=== PATIENT | female | born 1945 | race Caucasian/White ===

== ENCOUNTER 2021-03-30 12:02 | Emergency (ER) | payer MEDICARE ==
[2021-03-30 13:20] LABS: #Basophils 0.1 10x3/uL (0.0-0.2); #Monocytes 0.7 10x3/uL (0.0-1.1); #Neutrophils 9.4 10x3/uL (1.5-8.4); %Basophils 0.5 % (0.0-2.0); %Lymphocytes 5.1 % (18.0-47.0); %Monocytes 6.3 % (0.0-10.0); %Neutrophils 87.5 % (40.0-75.0); Hemoglobin 11.3 g/dL (12.0-15.5); Mean Corpuscular HGB CONC 31.7 g/dL (32.0-36.0); Mean Corpuscular Hemoglobin 29.7 pg (27.0-33.0); Mean Corpuscular Volume 93.4 fl (81.6-98.3); Mean Platelet Volume 10.4 fl (7.4-10.4); Platelet Count 257 10x3/uL (150-450); Red Blood Cell (RBC) Count 3.81 10x6/uL (3.90-5.03); White Blood Cell (WBC) Count 10.7 10x3/uL (3.5-10.5)
[2021-03-30 13:31] LABS: ALT (SGPT) 9 U/L (8-55); AST (SGOT) 19 U/L (5-34); Albumin 4.1 g/dL (3.4-4.8); Alkaline Phosphatase 90 U/L (40-110); Anion Gap 14 mmol/L (10-20); BUN (Urea Nitrogen) 11 mg/dL (9.8-20.1); Bilirubin, Total 1.7 mg/dL (0.2-1.2); Calc. Creatinine Clearance 0 mL/min (70-130); Calcium 8.6 mg/dL (7.8-10.44); Carbon Dioxide 28 mmol/L (23-31); Chloride 97 mmol/L (98-107); Glucose 139 mg/dL (83-110); Potassium 3.6 mmol/L (3.5-5.1); Protein, Total 7.1 g/dL (5.8-8.1); Sodium 135 mmol/L (136-145)
[2021-03-30 13:55] LABS: SARS-CoV-2 NAA Rapid Test Not Detected (NotDetected)
[2021-03-30] MEDS ORDERED: Furosemide 40 MG/4 ML VIAL ONE (14:21)
[2021-03-30] MEDS ORDERED: Acetaminophen 325 MG TAB PO PRN (18:03)
[2021-03-30] MEDS ORDERED: Dextrose 50% Abboject 50 ML SYRINGE SLOW IVP PRN (18:07)
[2021-03-30] MEDS ORDERED: HumaLOG 300 UNITS/3 ML VIAL SC PRN ×2 (18:07)
[2021-03-30] MEDS ORDERED: Dextrose 5% in Water 1,000 ML IV PRN (18:07)
[2021-03-30] MEDS ORDERED: Albuterol Sulfate 2.5 mg/3 ml Neb NEB PRN (18:11)
[2021-03-30] MEDS ORDERED: Electrolyte Replacement Protocol 1 EACH FS SCH (18:15)
[2021-03-30 19:25] VITALS: BMI 45.1
[2021-03-30] MEDS ORDERED: Enoxaparin Sodium 40 MG/0.4 ML SYRINGE SC SCH (20:00)
[2021-03-30] MEDS: methylPREDNISolone Sod Succ 40 MG VIAL IVP SCH (20:53)
[2021-03-30] MEDS ORDERED: Enoxaparin Sodium 40 MG/0.4 ML SYRINGE ONE (20:53)
[2021-03-30] MEDS ORDERED: methylPREDNISolone Sod Succ 40 MG VIAL ONE (20:53)
[2021-03-31 05:00] LABS: ALT (SGPT) 13 U/L (8-55); AST (SGOT) 26 U/L (5-34); Albumin 3.9 g/dL (3.4-4.8); Alkaline Phosphatase 87 U/L (40-110); Anion Gap 17 mmol/L (10-20); BUN (Urea Nitrogen) 12 mg/dL (9.8-20.1); Bilirubin, Total 1.3 mg/dL (0.2-1.2); Calc. Creatinine Clearance 114 mL/min (70-130); Calcium 8.9 mg/dL (7.8-10.44); Carbon Dioxide 26 mmol/L (23-31); Chloride 98 mmol/L (98-107); Globulin 3.7 g/dL (2.4-3.5); Glucose 210 mg/dL (83-110); Magnesium 1.8 mg/dL (1.6-2.6); Potassium 4.2 mmol/L (3.5-5.1); Protein, Total 7.6 g/dL (5.8-8.1); Sodium 137 mmol/L (136-145)
[2021-03-31] MEDS ORDERED: Magnesium 2 GM/50 ML 2 GM in Premix Bag 1 BAG IVPB SCH (05:15)
[2021-03-31] MEDS: Furosemide 40 MG/4 ML VIAL SLOW IVP SCH ×2 (05:45→14:30)
[2021-03-31] MEDS ORDERED: Furosemide 40 MG/4 ML VIAL ONE ×2 (05:46→14:34)
[2021-03-31] MEDS ORDERED: Magnesium 2 GM/50 ML BAG (IN WATER) ONE (05:46)
[2021-03-31] MEDS ORDERED: Enoxaparin Sodium 40 MG/0.4 ML SYRINGE SC SCH (09:00)
[2021-03-31] MEDS ORDERED: Enoxaparin Sodium 40 MG/0.4 ML SYRINGE ONE (09:59)
[2021-03-31] MEDS ORDERED: methylPREDNISolone Sod Succ 40 MG VIAL ONE (10:00)
[2021-03-31 10:19] VITALS: TEMP 98.4
[2021-03-31] MEDS: methylPREDNISolone Sod Succ 40 MG VIAL IVP SCH (10:19)
[2021-03-31 11:52] VITALS: BP 123/59
[2021-03-31 12:41] LABS: #Monocytes 0.4 10x3/uL (0.0-1.1); #Neutrophils 7.5 10x3/uL (1.5-8.4); %Basophils 0.1 % (0.0-2.0); %Lymphocytes 4.7 % (18.0-47.0); %Monocytes 4.7 % (0.0-10.0); %Neutrophils 90.1 % (40.0-75.0); Hemoglobin 10.9 g/dL (12.0-15.5); Mean Corpuscular HGB CONC 30.8 g/dL (32.0-36.0); Mean Corpuscular Hemoglobin 29.2 pg (27.0-33.0); Mean Corpuscular Volume 94.9 fl (81.6-98.3); Platelet Count 270 10x3/uL (150-450); RBC Distribution Width 15.8 % (11.5-14.5); Red Blood Cell (RBC) Count 3.73 10x6/uL (3.90-5.03); White Blood Cell (WBC) Count 8.4 10x3/uL (3.5-10.5)
[2021-03-31 12:50] LABS: Platelet Morphology Comment Appears Adequate
[2021-04-01] MEDS ORDERED: FLU VACC QS2021-22(65YR UP)/PF 240 MCG/0.7 ML SYRINGE IM ONE (09:00)
== END 2021-03-30 15:02 | disposition admitted as inpatient to this hospital (09) ==
LOC: CSHERS 12:02 → UNDOADMIN 14:42 → CSHERHOLD 14:42 → CSHERS 15:02
DX: I50.9 Heart failure, unspecified (principal); I25.10 Atherosclerotic heart disease of native coronary artery without angina pectoris; E66.9 Obesity, unspecified; Z79.899 Other long term (current) drug therapy; Z20.822 Contact with and (suspected) exposure to COVID-19
CPT/HCPCS: 71045; 80053; 82962; 83735; 83880; 84100; 84484; 85025; 87070; 87205; 93005; 93970; 94640 ×2; 96374; 97139; 97530; 97535; 99285; U0002; 36415; 36416; J1650; J1815; J1940; J1956; J2920; J3475; J7620